=== PATIENT | female | born 1935 | race African-American/Black ===

== ENCOUNTER 2020-04-16 15:25 | Emergency (ER) | payer MEDICARE ==
[~2020-04-16] VITALS: Ht 157.5 cm; Wt 83.0 kg
[2020-04-16] MEDS ORDERED: ASPI-1497 PO (15:34)
[2020-04-16] MEDS ORDERED: HYDR12.54 PO (15:34)
[2020-04-16] MEDS ORDERED: AMLO2.5T45 PO (15:34)
[2020-04-16] MEDS ORDERED: LOSA50TA41 PO (15:34)
[2020-04-16] MEDS ORDERED: SODIUM CHLORIDE 0.9% 1,000 ML IV ONE (17:03)
[2020-04-16 17:32] LABS: BASOPHILS % 1.2 % (0.0-2.0); EOSINOPHILS % 5.2 % (0.0-5.0); HEMATOCRIT. 37.4 % (36.0-48.0); HEMOGLOBIN. 12.7 g/dL (12.0-16.0); LYMPHOCYTES % 27.9 % (20.0-50.0); MEAN CORPUSCULAR HEMOGLOBIN 31.8 pg (28.0-32.0); MEAN CORPUSCULAR VOLUME 93.6 fL (81.0-99.0); MEAN PLATELET VOLUME 9.2 fl (7.4-10.4); MONOCYTES % 8.4 % (2.0-8.0); NEUTROPHILS % 57.3 % (40.0-76.0); PLATELET 291 x1000/uL (130-400); RED CELL DISTRIBUTION WIDTH 13.8 % (11.6-14.6)
[2020-04-16 17:39] LABS: CHLORIDE 103 mEq/L (98-107)
[2020-04-16] MEDS ORDERED: POTASSIUM CHLORIDE 20MEQ TABLET SR PO ONE (17:45)
[2020-04-16 17:46] LABS: PROTHROMBIN TIME 10.4 sec (9.6-11.0)
[2020-04-16 19:14] LABS: CLARITY URINE CLOUDY (CLEAR); COLOR URINE DARK YELLOW (YELLOW); KETONES URINE NEGATIVE (NEGATIVE); LEUKOCYTE ESTERASE URINE 3+ (NEGATIVE); NITRITE URINE NEGATIVE (NEGATIVE); OCCULT BLOOD URINE NEGATIVE (NEGATIVE); PROTEIN URINE NEGATIVE (NEGATIVE); SPECIFIC GRAVITY URINE 1.015 (1.005-1.030); UROBILINOGEN URINE 0.2 E.U./dL (0.2-1.0)
[2020-04-16] MEDS ORDERED: CEFTRIAXONE 1 G PREMIX 50 ML IV ONE (20:00)
[2020-04-16 20:55] VITALS: BP 136/72
== END 2020-04-16 22:18 | disposition home or self-care (01) ==
LOC: ER 15:25
DX: R55 Syncope and collapse (principal); E87.6 Hypokalemia; N30.00 Acute cystitis without hematuria; I10 Essential (primary) hypertension; Z88.0 Allergy status to penicillin; Z79.899 Other long term (current) drug therapy; Z79.82 Long term (current) use of aspirin
CPT/HCPCS: 36415; 71045; 80053; 81003; 84484; 85025; 85610; 93005; 96361; 96374; 99285; J0696; J7030